=== PATIENT | female | born 1985 | race Caucasian/White ===

== ENCOUNTER 2016-10-10 11:34 | Emergency (ER) | payer MEDICAID ==
[~2016-10-10] VITALS: Wt 65.0 kg
[~2016-10-10 11:34] MED LIST: AZIT250T94 PO; IBUP800T25 PO; LORA1TAB54 PO
[2016-10-10] MEDS ORDERED: ACET325T33 PO (12:40)
--- NOTE | 2016-10-10 12:56 | ERD ---
ER Documentation Chief Complaint Date/Time DATE: 10/10/16 TIME: 12:53 Chief Complaint left ear pain for a few days. no ob complaints. 12 wks preg HPI 30-year-old female with no significant past medical history presents to the ED as a , currently states that she is and is having a generalized frontal headache with left sided ear pain. States that she has not taken Tylenol for her pain. States that her son also has similar symptoms of cough, rhinorrhea, ear pain. Denies any fever, chills, abdominal pain, nausea, vomiting, vaginal bleeding, vaginal discharge, weakness, dizziness, numbness or tingling. States that her last menses was on July 18, 2016. ROS All systems reviewed and are negative except as per history of present illness. Medications Home Meds Active Scripts Acetaminophen* (Tylenol*) 325 Mg Tablet, 1 TAB PO Q6 Y for PAIN AND OR ELEVATED TEMP, #20 TAB Prov:YUE RAMIREZ PA-C 10/10/16 Ibuprofen* (Motrin*) 800 Mg Tab, 800 MG PO Q6H Y for PAIN AND OR ELEVATED TEMP, #30 TAB Prov:TEREZA RIOS DO 12/07/15 Azithromycin* (Zithromax*) 250 Mg Tablet, 250 MG PO .ZPACK DIRECTED, #6 TAB TAKE 500 MG (2 TABS) THE FIRST DAY THEN 250 MG (1 TAB) DAYS 2-5 Prov:YOSEF RIOSSTJOSES Luis DO 12/07/15 Loratadine/Pseudoephedrine* (Claritin-D* 12 Hr) 5-120 Mg Tab.er.12h, 1 TAB PO Q12, #60 TAB.SA Prov:TEREZA RIOS DO 12/07/15 Allergies Allergies: Coded Allergies: No Known Allergies (Verified Allergy, Unknown, 12/07/15) PMhx/Soc Medical and Surgical Hx: pt denies Medical Hx, pt denies Surgical Hx Hx Alcohol Use: No Hx Substance Use: No Hx Tobacco Use: No Smoking Status: Unknown if ever smoked Physical Exam Vitals Vital Signs Date Time Temp Pulse Resp B/P Pulse Ox O2 Delivery O2 Flow Rate FiO2 10/10/16 11:41 98.6 91 20 126/77 98 Physical Exam Const: [id number], well-nourished. In no acute distress. Head: Atraumatic, normocephalic Eyes: Normal Conjunctiva without injection. No purulent discharge. PERRL. EOMI ENT: Normal external ear. Bilateral ear canal without erythema. Bilateral tympanic membrane pearly ibarra without effusion or bulging. No tenderness to palpation of bilateral tragus and mastoid. Nasal canal clear with normal turbinates. Moist oropharynx without tonsillar exudates. Non-erythematous pharynx. Uvula midline. No drooling. No trismus. Neck: Full range of motion. No meningismus. No cervical lymphadenopathy. Resp: Clear to auscultation bilaterally. No wheezing, rhonchi, rales, or crackles. No accessory muscle use. No retractions. Cardio: Regular rate and rhythm. No murmurs, rubs or gallops. Abd: Soft, non tender, non distended. Normal bowel sounds. No palpable masses. No rebound tenderness. No guarding. Skin: No petechiae or rashes Back: No midline tenderness. No CVA tenderness. Ext: No cyanosis, or edema. Neur: Awake and alert. Psych: Normal Mood and Affect Procedures/MDM 30-year-old female with no significant past medical history presents to the ED, , with a generalized headache and left ear ache. Patient is afebrile and nontoxic-appearing patient has normal vital signs. Patient's physical exam is consistent with an earache without any signs of infection. No erythema, bulging tympanic membrane, purulent discharge noted. No tenderness to palpation of the tragus or mastoid. There is low suspicion for otitis media , otitis externa, mastoiditis. Patient's physical exam include lungs which were clear to auscultation and a normal pulse oximetry. There is a low suspicion for pneumonia, pneumothorax, pulmonary embolism, epiglottitis, viral/ strep pharyngitis, sinusitis, peritonsillar abscess, mastoiditis, retropharyngeal abscess, meningitis, sepsis, acute abdomen or other emergent conditions. Discharge medications: Tylenol Patient was instructed to return to the ED for any new or worsening symptoms. They should otherwise follow up with the primary care provider within 1-2 days. The patient's questions were answered at the time of discharge. Patient understood and agreed with discharge management. Departure Diagnosis: Primary Impression: Left ear pain Additional Impression: Headache Headache type: unspecified Headache chronicity pattern: unspecified pattern Intractability: not intractable Qualified Code: R51 - Nonintractable headache, unspecified chronicity pattern, unspecified headache type Condition: Stable Patient Instructions: Earache W/O Infection (Adult), Headache, Unspecified Referrals: [facility] YOU HAVE RECEIVED A MEDICAL SCREENING EXAM AND THE RESULTS INDICATE THAT YOU DO NOT HAVE A CONDITION THAT REQUIRES URGENT TREATMENT IN THE EMERGENCY DEPARTMENT. FURTHER EVALUATION AND TREATMENT OF YOUR CONDITION CAN WAIT UNTIL YOU ARE SEEN IN YOUR DOCTORS OFFICE WITHIN THE NEXT 1-2 DAYS. IT IS YOUR RESPONSIBILITY TO MAKE AN APPOINTMENT FOR FOLOW-UP CARE. IF YOU HAVE A PRIMARY DOCTOR --you should call your primary doctor and schedule an appointment IF YOU DO NOT HAVE A PRIMARY DOCTOR YOU CAN CALL OUR PHYSICIAN REFERRAL HOTLINE AT IF YOU CAN NOT AFFORD TO SEE A PHYSICIAN YOU CAN CHOSE FROM THE FOLLOWING [facility] [address] [facility] [place]. [facility] [address] [facility] [facility] [address] [facility] [place] [address] [facility] [facility] [address] [facility]. [facility]. [address] [facility]. [facility] YOU HAVE RECEIVED A MEDICAL SCREENING EXAM AND THE RESULTS INDICATE THAT YOU DO NOT HAVE A CONDITION THAT REQUIRES URGENT TREATMENT IN THE EMERGENCY DEPARTMENT. FURTHER EVALUATION AND TREATMENT OF YOUR CONDITION CAN WAIT UNTIL YOU ARE SEEN IN YOUR DOCTORS OFFICE WITHIN THE NEXT 1-2 DAYS. IT IS YOUR RESPONSIBILITY TO MAKE AN APPOINTMENT FOR FOLOW-UP CARE. IF YOU HAVE A PRIMARY DOCTOR --you should call your primary doctor and schedule and appointment IF YOU DO NOT HAVE A PRIMARY DOCTOR YOU CAN CALL OUR PHYSICIAN REFERRAL HOTLINE AT . IF YOU CAN NOT AFFORD TO SEE A PHYSICIAN YOU CAN CHOSE FROM THE FOLLOWING [facility] INSTITUTIONS[facility] [address] [place] [address] [facility] [address] [place] [address] [facility] [address] [place] [address] [facility] Additional Instructions: Visite a tavera tee bueno para un EXAMEN.Regrese a estas instalaciones si no se mejora howard esperbamos o howard le dijimos. YUE RAMIREZ PA-C Oct 10, 2016 12:56
== END 2016-10-10 13:00 | disposition home or self-care (01) ==
LOC: FTE 11:34
DX: O99.89 Other specified diseases and conditions complicating pregnancy, childbirth and the puerperium (principal); H92.02 Otalgia, left ear; R51 Headache; Z3A.12 12 weeks gestation of pregnancy
CPT/HCPCS: 99283

== ENCOUNTER 2017-01-09 10:39 | Emergency (ER) | payer MEDICAID ==
[~2017-01-09] VITALS: Wt 80.0 kg
[~2017-01-09 10:39] MED LIST changes: +ACET325T33 PO
[2017-01-09] MEDS ORDERED: ACET325T33 PO (11:56)
--- NOTE | 2017-01-09 14:02 | ERD ---
ER Documentation Chief Complaint Date/Time DATE: 01/09/17 TIME: 13:59 Chief Complaint HEADACHE X 2 DAYS HPI 31-year-old woman complains of left-sided headache 2 days, she has a long history of similar headaches and states she was diagnosed previously with migraines. She does not recall the name of her anti-migrainous therapy and states she used acetaminophen and ibuprofen today without relief. She is over 20 weeks by dates and previously confirmed normal ultrasound and did see her seo manager earlier in the week who told her to avoid medications. She states her seo manager also told her it is part of normal second trimester symptoms. She states she has had CAT scans in the past which were unremarkable. She has had no weakness in her arms or legs, no neck pain or stiffness, no fevers or chills, no chest pain or shortness of breath. Patient denies vaginal bleeding or discharge, no dysuria or increased urinary frequency ROS All systems reviewed and are negative except as per history of present illness. Medications Home Meds Active Scripts Acetaminophen* (Tylenol*) 325 Mg Tablet, 2 TAB PO Q8 Y for PAIN, #30 TAB Prov:CANDELARIO ZHENG MD 01/09/17 Acetaminophen* (Tylenol*) 325 Mg Tablet, 1 TAB PO Q6 Y for PAIN AND OR ELEVATED TEMP, #20 TAB Prov:YUE RAMIREZ PA-C 10/10/16 Ibuprofen* (Motrin*) 800 Mg Tab, 800 MG PO Q6H Y for PAIN AND OR ELEVATED TEMP, #30 TAB Prov:YOSEF RIOSSTOLOS A. DO 12/07/15 Azithromycin* (Zithromax*) 250 Mg Tablet, 250 MG PO .GERHARD DIRECTED, #6 TAB TAKE 500 MG (2 TABS) THE FIRST DAY THEN 250 MG (1 TAB) DAYS 2-5 Prov:LEKKOS,YOSEFSTOLOS A. DO 12/07/15 Loratadine/Pseudoephedrine* (Claritin-D* 12 Hr) 5-120 Mg Tab.er.12h, 1 TAB PO Q12, #60 TAB.SA Prov:LEANAOS,YOSEFSTOLOS A. DO 12/07/15 Allergies Allergies: Coded Allergies: No Known Allergies (Verified Allergy, Unknown, 12/07/15) PMhx/Soc Migraines History of Surgery: No Anesthesia Reaction: No Hx Neurological Disorder: No Hx Respiratory Disorders: No Hx Cardiac Disorders: No Hx Psychiatric Problems: No Hx Miscellaneous Medical Probl: No Hx Alcohol Use: No Hx Substance Use: No Hx Tobacco Use: No Smoking Status: Never smoker FmHx Family History: diabetes Physical Exam Vitals Vital Signs Date Time Temp Pulse Resp B/P Pulse Ox O2 Delivery O2 Flow Rate FiO2 01/09/17 10:50 98.0 110 18 141/71 99 Physical Exam GENERAL: Well-developed, well-nourished, well-hydrated, in no apparent distress , looks nontoxic in appearance HEENT: Moist mucous membranes, pink conjunctiva, no cervical spine tenderness or step-off deformities, no goiter, no jaundice or icterus, extraocular movements intact without pain. No submandibular induration, and no pharyngeal erythema NEURO: Alert and oriented 3, cranial nerves II through XII intact bilaterally, pupils equal round reactive to light, no focal deficits or facial asymmetry, sensation intact distally Strength 5/5 in upper and lower extremities bilaterally CARDIAC: Regular rate and rhythm, no murmurs rubs or gallops LUNGS: Clear bilaterally no wheezing crackles or stridor ABDOMEN: Soft nontender, no guarding, no rigidity, no rebound, no psoas sign no obturator sign. Normoactive bowel sounds SKIN: Warm and dry to touch, no abrasions, contusions, or hematomas, no lacerations, no ecchymosis, no target lesions, and without ulcers EXTREMITIES: No clubbing cyanosis or edema, calves are bilaterally symmetrical, no Homans sign, no popliteal cord sign. Distal pulses equal and bilateral PSYCH: Normal affect without agitation or irritability Procedures/MDM She recently used ibuprofen and acetaminophen so I will defer further analgesics here in the emergency department, and referred her back to her seo manager to help manage her pain symptoms during . She may be a better candidate for medication use after she delivers. Differential diagnoses considered, included but not limited to acute coronary syndrome, pulmonary embolism, aortic dissection, abdominal aortic aneurysm, sepsis, stroke, meningitis, encephalitis, pneumonia, appendicitis, cholecystitis , bowel obstruction, pyelonephritis, nephrolithiasis, cystitis, as well as metabolic, hematologic, and electrolyte abnormalities. As well as abscess, cellulitis, fractures, and dislocations. Patient feels much better at this time, and vital signs are normal, symptoms have improved. I did give strict instructions to return to the ED if symptoms continue or worsen, patient will otherwise follow-up with primary care physician. Patient understood instructions and agreed to plan. Departure Diagnosis: Primary Impression: Migraine Migraine type: without aura Status migrainosus presence: without status migrainosus Intractability: not intractable Qualified Code: G43.009 - Migraine without aura and without status migrainosus, not intractable Additional Impression: Second trimester Condition: Good Patient Instructions: Headache, Migraine (Classical) CANDELARIO ZHENG MD Jan 09, 2017 14:02
== END 2017-01-09 12:07 | disposition home or self-care (01) ==
LOC: FTE 10:39
DX: O99.352 Diseases of the nervous system complicating pregnancy, second trimester (principal); G43.009 Migraine without aura, not intractable, without status migrainosus; Z3A.20 20 weeks gestation of pregnancy
CPT/HCPCS: 99283

== ENCOUNTER 2017-03-15 01:43 | Outpatient (CLI) | payer MEDICAID ==
[~2017-03-15] VITALS: Ht 162.6 cm; Wt 83.0 kg
[2017-03-15 01:52] VITALS: Ht 162.6 cm; Wt 83.0 kg
[2017-03-15 01:53] VITALS: BP 129/85; PULSE 89; RESP 18
--- NOTE | 2017-03-15 04:35 | RADRPT ---
PROCEDURE: ULTRASOUND BIOPHYSICAL PROFILE CLINICAL INDICATION: 31-year-old female in labor for viability. TECHNIQUE: Multiple sonographic images were obtained in order to perform a biophysical profile The images were reviewed on a PACS workstation. COMPARISON: None. FINDINGS: There is a single viable intrauterine gestation. There is a vertex presentation. Cardiac activity i s present at 122 beats per minute. The placenta is anterior. The results of the biophysical profile are as follows: breathing movement = 2/2 Gross body movement = 2/2 tone = 2/2 Qualitative amniotic fluid volume = 2/2 Amniotic fluid index equals 19.4 cm. This yields a biophysical profile score of 8/8. IMPRESSION: Biophysical profile score is 8/8. .Jovi Duenas MD, Date Time Electronically viewed and signed by .Jovi Duenas MD, MD on 03/15/2017 04:35 .M/
--- NOTE | 2017-03-15 04:38 | RADRPT ---
PROCEDURE: ULTRASOUND OBSTETRICAL CLINICAL INDICATION: 31-year-old female in labor for size and date determination. TECHNIQUE: Multiple sonographic images of the pelvis were obtained. The images were reviewed on a PACS workstation. COMPARISON: Ultrasound biophysical profile obtained concurrently. FINDINGS: The cervix is not well visualized. There is a single viable intrauterine gestation. Cardiac activit y is present with 131 beats per minute. There is a vertex presentation. Measurements were made in or caridad to determine age. The results are as follows: BPD = 8.89 cm, HC = 31.90 cm, AC = 31.99 cm, FL = 6.73 cm. This yields and estimated gestational ag e of approximately 35 weeks 4 days. The estimated date of delivery is April 15, 2017. The EFW = 272 3 +/- 409 g (6 lb 0 oz). The GP is 87%. The placenta is fundal. There is no evidence for an abruption or placenta previa. IMPRESSION: 1. Single viable intrauterine gestation of approximately 85 weeks 4 days with vertex presentation. The estimated date of delivery is April 15, 2017. 2. The estimated weight is 2723 +/- 409 g (6 lb 0 oz). The GP is 87%. .Jovi Duenas MD, Date Time Electronically viewed and signed by .Jovi Duenas MD, MD on 03/15/2017 04:37 .Alexa/
[2017-03-15] MEDS ORDERED: TERBUTALINE 1 MG/ML INJ SC PRN (06:25)
--- NOTE | 2017-03-15 12:13 | TRIAGE ---
OB Triage Datetime Report Generated by CPN: 03/15/2017 12:12 Datetime: 03/15/2017 11:16 Labor Evaluation Frequency: x2 Monitor Mode: External Duration (sec)2399: 40 Quality: Mild Pattern: Normal: <= 5 Contractions in 10 Minutes Resting Tone [place]: Relaxed Heart Rate FHR Baseline Rate: 125 FHR Baseline Changes: No Baseline Change Variability: Moderate 6-25 bpm Accelerations: 15X15 Decelerations: Variable Datetime: 03/15/2017 11:00 Labor Evaluation Frequency: 4-12 Monitor Mode: External Duration (sec)2399: 50-60 Quality: Mild Pattern: Normal: <= 5 Contractions in 10 Minutes Resting Tone [place]: Relaxed Heart Rate FHR Baseline Rate: 130 Monitor Mode: External US FHR Baseline Changes: No Baseline Change Variability: Moderate 6-25 bpm Accelerations: 15X15 Decelerations: Variable Comments: OCC VARIABLES Datetime: 03/15/2017 10:02 Labor Evaluation Frequency: 3-12 Monitor Mode: External Duration (sec)2399: 50-70 Quality: Mild Pattern: Normal: <= 5 Contractions in 10 Minutes Resting Tone [place]: Relaxed Contraction Comments: PT REPORTS NOT FEELING CTX Heart Rate FHR Baseline Rate: 125 FHR Baseline Changes: No Baseline Change Variability: Moderate 6-25 bpm Accelerations: 15X15 Decelerations: Variable Datetime: 03/15/2017 09:01 Labor Evaluation Frequency: 3-11 Monitor Mode: External Duration (sec)2399: 40-60 Quality: Mild Pattern: Normal: <= 5 Contractions in 10 Minutes Resting Tone [place]: Relaxed Contraction Comments: PT REPORTS NOT FEELING CTX Heart Rate FHR Baseline Rate: 130 FHR Baseline Changes: No Baseline Change Variability: Moderate 6-25 bpm Accelerations: 15X15 Decelerations: None Category: Category I Datetime: 03/15/2017 08:42 Vaginal Exam Dilatation (cms): 0.0 Effacement (%): 0 Station: -3 Exam By: CK Vaginal Bleeding: None Cervix, Consistency: Firm Cervix, Position: Posterior Datetime: 03/15/2017 08:01 Labor Evaluation Frequency: 4-10 Monitor Mode: External Duration (sec)2399: 40-70 Quality: Mild Pattern: Normal: <= 5 Contractions in 10 Minutes Resting Tone [place]: Relaxed Contraction Comments: PT REPORTS NOT FEELING CTX Heart Rate FHR Baseline Rate: 120 Monitor Mode: External US FHR Baseline Changes: No Baseline Change Variability: Moderate 6-25 bpm Accelerations: 15X15 Decelerations: None Category: Category I Datetime: 03/15/2017 07:52 Pain Assessment Pain Scale: 9 Pain Presence: Intermittent Pain Location: Right Leg Pain Assessment Comments: PAIN WHEN WALKING ONLY; UPPER THIGH Datetime: 03/15/2017 06:21 Stage of : OB Triage Datetime: 03/15/2017 06:08 Stage of : OB Triage Labor Evaluation Frequency: 2-4 Monitor Mode: External Duration (sec)2399: 40-50 Quality: Mild Resting Tone [place]aceo: Relaxed Heart Rate FHR Baseline Rate: 125 Monitor Mode: External US Variability: Moderate 6-25 bpm Accelerations: 15X15 Decelerations: None Category: Category I Datetime: 03/15/2017 05:14 Stage of : OB Triage Datetime: 03/15/2017 05:10 Stage of : OB Triage Labor Evaluation Frequency: x4 Monitor Mode: External Quality: Mild Resting Tone [place]aceo: Relaxed Heart Rate FHR Baseline Rate: 115 Monitor Mode: External US Variability: Moderate 6-25 bpm Accelerations: 15X15 Decelerations: None Category: Category I Datetime: 03/15/2017 04:15 Vaginal Exam Dilatation (cms): 0.0 Effacement (%): 0 Station: -3 Exam By: M BUENROSTRO Vaginal Bleeding: None Cervix, Consistency: Firm Cervix, Position: Posterior Presentation 'A': Unable to Assess Datetime: 03/15/2017 04:00 Stage of : OB Triage Labor Evaluation Frequency: 0 Monitor Mode: External Resting Tone [place]aceo: Relaxed Heart Rate FHR Baseline Rate: 130 Variability: Minimal - Undetectable to <=5 bpm Accelerations: 15X15 Decelerations: None Category: Category I Datetime: 03/15/2017 03:22 Membrane Status: Intact Datetime: 03/15/2017 02:57 Labor Evaluation Frequency: x2 Monitor Mode: External Duration (sec)2399: 40-60 Resting Tone Maceo: Relaxed Heart Rate FHR Baseline Rate: 115 Monitor Mode: External US Variability: Moderate 6-25 bpm Accelerations: 15X15 Decelerations: None Category: Category I Datetime: 03/15/2017 01:49 Stage of : OB Triage Assessment Type: Triage Maternal Assessment Level of Consciousness: Fully Conscious DTR's/Clonus: DTRs 2+; No Clonus Headache: Denies Blurred Vision: No Respiratory Effort: Unlabored; Regular Rhythm; Equal Expansion Breath Sounds, Left: Clear and Equal Breath Sounds, Right: Clear and Equal Nausea/Vomiting: Denies RUQ Epigastric Pain: Denies Facial Edema: None Temperature Route: Axillary Fall Risk Assessment History of Falling: (0) No Secondary Diagnosis: (0) No Ambulatory Aid: (0) Bedrest/Nurse Assist IV Therapy: (0) No Gait: (0) Normal/Bedrest/Immobile Mental Status: (0) Oriented to Own Ability Fall Score: 0 Fall Risk Score Definition: No Risk: No action required Datetime: 03/15/2017 01:48 Time of Arrival: 03/15/2017 01:35 EGA: 34.0 Arrived By: Ambulatory Arrived From: Home Chief Complaint: lower abdominal pain, cramping. denies leaking or bleeding Movement: Present Contractions: Irregular Rupture of Membranes: Denies Vaginal Bleeding: None Vaginal Discharge: Denies Recent Sexual Intercouse: Denies Abdominal Trauma: Not Applicable Patient Complaints: Contractions; Cramping Initial Plan: VS, EFM, PO HYDRATION, BPP, EFW, VE Datetime: 03/15/2017 01:45 Stage of : OB Triage Monitor Mode: External Monitor Mode: External US
--- NOTE | 2017-03-15 17:22 | QN ---
Documentation Comment iup 34 weeks Ucx leg pain vss exam wnl 2/2 dtr 5/5 strenght us wnl a/p iup 34 weeks false labor dc home AUBREY ROBERSON MD Mar 15, 2017 17:22
== END 2017-03-15 11:40 | disposition home or self-care (01) ==
LOC: OBT 01:43 → L-D 01:44 → OBT 11:40
PROVIDERS: ATTEND Obstetrics & Gynecology
DX: O47.03 False labor before 37 completed weeks of gestation, third trimester (principal); Z3A.34 34 weeks gestation of pregnancy
CPT/HCPCS: 76815; 76818; 96372; J3105; Z7500; G0463

== ENCOUNTER 2017-04-08 17:33 | Outpatient (CLI) | payer MEDICAID ==
[~2017-04-08] VITALS: Ht 152.4 cm; Wt 84.2 kg
--- NOTE | 2017-04-08 18:00 | RADRPT ---
PROCEDURE: US OB biophysical profile. CLINICAL INDICATION: evaluation TECHNIQUE: Multiple sonographic images of the pelvis were obtained. The images were reviewed on a PACS workstation. COMPARISON: No prior studies are available for comparison. FINDINGS: There is a single viable intrauterine gestation. Cardiac activity is present with 132 beats per min nasir. There is a vertex presentation. The placenta is left lateral in location. There is no evidence of placental abruption. There is a normal amount of amniotic fluid with an RUEL = 16.3 cm. Biophysical profile: movement 2/2 tone 2/2. breathing 2/2 RUEL 2/2 Total 04/28 RPTAT: AA . IMPRESSION: Normal biophysical profile. Physician Ruiz Date Time Electronically viewed and signed by Physician Ruiz on 04/08/2017 18:00 /
[2017-04-08 18:59] VITALS: Ht 152.4 cm; Wt 84.2 kg
[2017-04-08 19:00] VITALS: BP 118/75; PULSE 84; RESP 20
[2017-04-08] MEDS ORDERED: PRENAT PO (19:05)
[2017-04-08] MEDS ORDERED: CALC600T11 PO (19:06)
[2017-04-08 19:44] LABS: ADD UMIC NO; UR ASCORBIC ACID NEGATIVE (NEGATIVE); UR BILIRUBIN (Dip) NEGATIVE (NEGATIVE); UR BLOOD (Dip) NEGATIVE (NEGATIVE); UR CLARITY CLEAR (CLEAR); UR COLOR YELLOW (YELLOW); UR GLUCOSE (Dip) NEGATIVE (NEGATIVE); UR KETONES (Dip) 1+ mg/dL (NEGATIVE); UR LEUKOCYTE ESTERASE (Dip) NEGATIVE Leu/ul (NEGATIVE); UR NITRITE (Dip) NEGATIVE (NEGATIVE); UR SPECIFIC GRAVITY (Dip) 1.012 (1.003-1.030); UR TOTAL PROTEIN (Dip) NEGATIVE (NEGATIVE); UR UROBILINOGEN (Dip) NEGATIVE (NEGATIVE)
--- NOTE | 2017-04-08 20:03 | PN ---
Triage Information Date/Time 04/08/2017 Weeks of Gestation 37.9 : 4 Para: 3 Diabetes: none Hypertention: none Additional information sent in from clinic for NST and BPP because of audible decelerations Objective Vital Signs Date Time Temp Pulse Resp B/P Pulse Ox O2 Delivery O2 Flow Rate FiO2 04/08/17 19:00 98.1 84 20 118/75 Room Air Heart Rate: 140's Heart Rate Comments reactive Contractions: 6-10 Minutes Apart Results/Medications Results 24 hrs Laboratory Tests Test 04/08/17 18:43 Urine Color YELLOW Urine Clarity CLEAR Urine pH 6.0 Urine Specific [place] 1.012 Urine Ketones 1+ H Urine Nitrite NEGATIVE Urine Bilirubin NEGATIVE Urine Urobilinogen NEGATIVE Urine Leukocyte Esterase NEGATIVE Urine Hemoglobin NEGATIVE Urine Glucose NEGATIVE Urine Total Protein NEGATIVE Imaging Results BPP 04/28 Assessment/Plan Audible decelerations R NST and BPP eill follow as outpatient KWADWO ALVAREZ MD Apr 08, 2017 20:03
--- NOTE | 2017-04-09 00:25 | TRIAGE ---
OB Triage Datetime Report Generated by CPN: 04/09/2017 00:24 Datetime: 04/08/2017 18:54 Labor Evaluation Frequency: IRREG Monitor Mode: External Duration (sec)2399: 50-90 Quality: Mild Pattern: Normal: <= 5 Contractions in 10 Minutes Resting Tone [place]: Relaxed Heart Rate FHR Baseline Rate: 125 Monitor Mode: External US Variability: Moderate 6-25 bpm Accelerations: 15X15 Decelerations: None Category: Category I Comments: NST REACTIVE FOR GESTATIONAL AGE Datetime: 04/08/2017 18:53 Stage of : OB Triage Assessment Type: Triage Maternal Assessment Level of Consciousness: Fully Conscious DTR's/Clonus: DTRs 2+; No Clonus Headache: Denies Blurred Vision: No Respiratory Effort: Unlabored; Regular Rhythm; Equal Expansion Breath Sounds, Left: Clear and Equal Breath Sounds, Right: Clear and Equal Nausea/Vomiting: Denies RUQ Epigastric Pain: Denies Lower Extremities Edema: None Degree: None Upper Extremities Edema: None Degree: None Facial Edema: None Temperature Route: Axillary Fall Risk Assessment History of Falling: (0) No Secondary Diagnosis: (0) No Ambulatory Aid: (0) Bedrest/Nurse Assist IV Therapy: (0) No Gait: (0) Normal/Bedrest/Immobile Mental Status: (0) Oriented to Own Ability Fall Score: 0 Fall Risk Score Definition: No Risk: No action required Datetime: 04/08/2017 18:46 Time of Arrival: 04/08/2017 17:23 EGA: 37.3 Arrived By: Ambulatory Arrived From: Dr. Ramirez Chief Complaint: AUDIBLE DECEL IN CLINIC Movement: Present Contractions: Denies/Absent Rupture of Membranes: Denies Vaginal Bleeding: None Vaginal Discharge: Denies Recent Sexual Intercouse: Denies Abdominal Trauma: Not Applicable Patient Complaints: None Time Provider Notified: 04/08/2017 17:30 Provider Notified: DR. MCCORMICK Initial Plan: BPP, EXTENDED MONITORING Datetime: 04/08/2017 18:30 Maternal Assessment Level of Consciousness: Fully Conscious DTR's/Clonus: DTRs 2+; No Clonus Headache: Denies Blurred Vision: No Respiratory Effort: Unlabored; Regular Rhythm; Equal Expansion Breath Sounds, Left: Clear and Equal Breath Sounds, Right: Clear and Equal Nausea/Vomiting: Denies RUQ Epigastric Pain: Denies Facial Edema: None Fall Risk Assessment History of Falling: (0) No Secondary Diagnosis: (0) No Ambulatory Aid: (0) Bedrest/Nurse Assist IV Therapy: (0) No Gait: (0) Normal/Bedrest/Immobile Mental Status: (0) Oriented to Own Ability Fall Score: 0 Fall Risk Score Definition: No Risk: No action required Datetime: 03/15/2017 01:49 Fall Score: 0 Fall Risk Score Definition: No Risk: No action required Datetime: 03/15/2017 01:48 EGA: 34.0
== END 2017-04-08 21:05 | disposition home or self-care (01) ==
LOC: OBT 17:33 → L-D 17:36 → OBT 21:05
PROVIDERS: ATTEND Obstetrics & Gynecology
DX: O76 Abnormality in fetal heart rate and rhythm complicating labor and delivery (principal); Z3A.37 37 weeks gestation of pregnancy
CPT/HCPCS: 76818; 81003; Z7500; G0463

== ENCOUNTER 2017-04-24 13:11 | Inpatient (IN) | payer MEDICAID ==
[~2017-04-24] VITALS: Ht 152.4 cm; Wt 83.7 kg
[~2017-04-24 13:11] MED LIST changes: -ACET325T33 PO; -AZIT250T94 PO; +CALC600T11 PO; -IBUP800T25 PO; -LORA1TAB54 PO; +PRENAT PO
[2017-04-24 13:26] VITALS: BP 126/77; PULSE 117; RESP 16; Ht 152.4 cm; Wt 83.7 kg
--- NOTE | 2017-04-24 14:07 | TRIAGE ---
OB Triage Datetime Report Generated by CPN: 04/24/2017 14:07 Datetime: 04/24/2017 13:59 Labor Evaluation Frequency: 4-7 Monitor Mode: External Duration (sec)2399: 60-160 Quality: Moderate Pattern: Normal: <= 5 Contractions in 10 Minutes Resting Tone Aristes: Relaxed Heart Rate FHR Baseline Rate: 145 Monitor Mode: External US Variability: Moderate 6-25 bpm Accelerations: 15X15 Decelerations: None Category: Category I Pain Assessment Pain Scale: 6 Pain Presence: Intermittent Pain Type: Contraction Pain Location: Abdomen Pain Goal: 3 Datetime: 04/24/2017 13:55 Assessment Type: Triage Maternal Assessment Level of Consciousness: Fully Conscious DTR's/Clonus: DTRs 2+; No Clonus Headache: Denies Blurred Vision: No Respiratory Effort: Unlabored; Regular Rhythm; Equal Expansion Breath Sounds, Left: Clear and Equal Breath Sounds, Right: Clear and Equal Nausea/Vomiting: Denies RUQ Epigastric Pain: Denies Lower Extremities Edema: None Degree: None Upper Extremities Edema: None Degree: None Facial Edema: None Fall Risk Assessment History of Falling: (0) No Secondary Diagnosis: (0) No Ambulatory Aid: (0) Bedrest/Nurse Assist IV Therapy: (0) No Gait: (0) Normal/Bedrest/Immobile Mental Status: (0) Oriented to Own Ability Fall Score: 0 Fall Risk Score Definition: No Risk: No action required Datetime: 04/24/2017 13:28 Vaginal Exam Dilatation (cms): 2.5 Effacement (%): 70 Station: -3 Exam By: wliu Datetime: 04/24/2017 13:20 Time of Arrival: 04/24/2017 13:00 EGA: 39.5 Arrived By: Ambulatory Arrived From: Home Chief Complaint: Pt. came to hospital c/o uc for 3days, pain level 6/10, deny srom, small amount b loody show Movement: Present Contractions: Regular Rupture of Membranes: Denies Vaginal Bleeding: Normal Show Vaginal Discharge: Denies Recent Sexual Intercouse: Denies Abdominal Trauma: Not Applicable Patient Complaints: Contractions Time Provider Notified: 04/24/2017 13:41 Provider Notified: Initial Plan: r/o labor Datetime: 04/08/2017 20:47 Stage of : OB Triage Labor Evaluation Frequency: 3-8 Monitor Mode: External Quality: Mild Pattern: Normal: <= 5 Contractions in 10 Minutes Resting Tone Aristes: Relaxed Monitor Mode: External US FHR Baseline Changes: No Baseline Change Variability: Moderate 6-25 bpm Accelerations: 15X15 Decelerations: None Category: Category I Pain Assessment Pain Scale: 0 Pain Presence: None/Denies Pain Type: N/A Vaginal Exam Dilatation (cms): 1.0 Effacement (%): 60 Station: -3 Exam By: Boaz Jones Membrane Status: Intact Vaginal Bleeding: None Cervix, Consistency: Moderate Cervix, Position: Posterior Presentation 'A': Cephalic Datetime: 04/08/2017 20:06 Stage of : OB Triage Monitor Mode: External Quality: Mild Pattern: Normal: <= 5 Contractions in 10 Minutes Resting Tone Aristes: Relaxed Heart Rate FHR Baseline Rate: 120 Monitor Mode: External US FHR Baseline Changes: No Baseline Change Variability: Moderate 6-25 bpm Accelerations: 15X15 Decelerations: None Category: Category I Datetime: 04/08/2017 19:24 Stage of : OB Triage Labor Evaluation Frequency: 3-5 Monitor Mode: External Quality: Mild Pattern: Normal: <= 5 Contractions in 10 Minutes Resting Tone Aristes: Relaxed Contraction Comments: Pt denies feeling ucs Heart Rate FHR Baseline Rate: 120 Monitor Mode: External US FHR Baseline Changes: No Baseline Change Variability: Moderate 6-25 bpm Accelerations: 15X15 Decelerations: None Category: Category I Pain Assessment Pain Scale: 0 Pain Presence: None/Denies Pain Type: N/A Datetime: 04/08/2017 18:53 Fall Score: 0 Fall Risk Score Definition: No Risk: No action required Datetime: 04/08/2017 18:46 EGA: 37.3 Datetime: 04/08/2017 18:30 Fall Score: 0 Fall Risk Score Definition: No Risk: No action required Datetime: 03/15/2017 01:49 Fall Score: 0 Fall Risk Score Definition: No Risk: No action required Datetime: 03/15/2017 01:48 EGA: 34.0
[2017-04-24] MEDS ORDERED: LACTATED RINGER'S 1,000 ML IV SCH (14:44)
[2017-04-24] MEDS ORDERED: METHYLERGONOVINE 0.2 MG INJ IM PRN (15:00)
[2017-04-24] MEDS ORDERED: CARBOPROST 250 MCG INJ IM PRN (15:00)
[2017-04-24] MEDS ORDERED: OXYTOCIN 30 UNITS/LR 500 ML IV PRN (15:00)
[2017-04-24] MEDS ORDERED: MINERAL OIL LIGHT 10 ML VIAL TOP PRN (15:00)
[2017-04-24] MEDS ORDERED: OXYTOCIN 30 UNITS/LR 500 ML IV SCH ×2 (15:00→18:30)
[2017-04-24] MEDS ORDERED: ACETAMINOPHEN/CODEINE #3 TAB PO PRN (15:00)
[2017-04-24] MEDS ORDERED: LACTATED RINGER'S 1,000 ML IV PRN (15:00)
[2017-04-24] MEDS ORDERED: BUTORPHANOL 2 MG INJ IV PRN (15:00)
[2017-04-24] MEDS ORDERED: MISOPROSTOL 200 MCG TAB PR PRN (15:00)
[2017-04-24] MEDS ORDERED: IBUPROFEN 600 MG TAB PO PRN (15:00)
[2017-04-24] MEDS ORDERED: LIDOCAINE 1% (MPF) 30 ML INJ INJ PRN (15:00)
[2017-04-24 15:10] LABS: BASOPHILS % 0.3 % (0.0-2.0); EOSINOPHILS % 0.5 % (0.0-7.0); HEMATOCRIT 35.7 % (37.0-47.0); HEMOGLOBIN 12.4 g/dl (12.0-16.0); LYMPHOCYTES # 1.4 10^3/ul (0.8-2.9); LYMPHOCYTES % 20.8 % (15.0-51.0); MEAN CORPUSCULAR HEMOGLOBIN 27.8 pg (29.0-33.0); MEAN CORPUSCULAR HGB CONC 34.7 g/dl (32.0-37.0); MEAN PLATELET VOLUME 10.4 fl (7.4-10.4); MONOCYTE # 0.6 10^3/ul (0.3-0.9); MONOCYTES % 8.6 % (0.0-11.0); NEUTROPHIL # 4.6 10^3/ul (1.6-7.5); NEUTROPHILS % 69.3 % (39.0-77.0); PLATELET COUNT 190 10^3/UL (140-415); RED BLOOD COUNT 4.46 10^6/ul (4.20-5.40); WHITE BLOOD COUNT 6.6 10^3/ul (4.8-10.8)
[2017-04-24 15:27] LABS: INR 0.93; PROTIME 12.5 Sec (12.2-14.2)
[2017-04-24 15:28] LABS: PARTIAL THROMBOPLASTIN TIME 25.6 Sec (25.0-35.0)
--- NOTE | 2017-04-24 18:29 | HP ---
Date/Time of Note Date/Time of Note DATE: 04/24/17 TIME: 18:25 OB - History Hx of Present Free Text/Dictation Complaint of onset of uterine contractions started a.m. of admission Chief Complaint: Uterine contractions every 5 minutes Last Menstrual Period: Jul 18, 2016 Estimated Due Date: Apr 24, 2017 : 4 Para: 3 Care: Good Care Ultrasounds: Normal mid trimester US Obstetrical Complications: None, Other (Possible abnormal glucose screen during ) Medical Complications: None Past Family/Social History * Past Medical, Surgical, Family and Obstetric Histories reviewed from chart. Blood Type: O+ Rubella: immune RPR/VDRL: Negative GBS Status: Negative HBsAG: Negative OB Admission Exam Vital Signs Vital Signs Vital Signs Date Time Temp Pulse Resp B/P Pulse Ox O2 Delivery O2 Flow Rate FiO2 04/24/17 13:26 98.0 117 16 126/77 Physical Exam HEENT: WNL Heart: Rhythm Normal Lungs: Clear, Equal Abdomen: WNL Extremities: Normal Reflexes: Normal Cervical Dilatation: 4cm Effacement: 75% Station: -3 Membranes: Intact Heart Rate: 140's Accelerations: Accelerations Present Decelerations: No Decelerations Varibility: Moderate Contractions on Admission: 6-10 Minutes Apart Date/Time Contractions Began: 04/24/2017 Frequency of Contractions: Q5 Duration: >60 SECONDS Intensity: Mild Last 72 hours Lab Results CBC & BMP 04/24/17 14:47 OB Assessment/Plan Reason for admission: active labor Other Assessment: Term gestation Possible macrosomia Other plan: We will obtain EFW Started on Pitocin augmentation KWADWO ALVAREZ MD Apr 24, 2017 18:28
--- NOTE | 2017-04-24 19:16 | RADRPT ---
PROCEDURE: US OB. CLINICAL INDICATION: Contractions. Macrosomia. TECHNIQUE: Multiple sonographic images of the pelvis were obtained. Transabdominal imaging only wa s performed. The images were reviewed on a PACS workstation. COMPARISON: None available. FINDINGS: There is a single viable intrauterine gestation. Cardiac activity is present with a heart rate of 1 33 bpm. There is a cephalic presentation. Measurements were made in order to determine age. The results are as follows: BPD = 9.65 cm HC = 534.21 cm AC = 35.31 cm FL = 7.7 cm Estimated gestational age of approximately 39 weeks 3 days. The estimated date of delivery is 04/28/2017. The EFW = 37 48 g, at the 69.9 percentile. The placenta is posterior, grade 2. There is no evidence for an abruption or placenta previa. IMPRESSION: 1. Single viable intrauterine gestation of approximately 39 weeks 3 days. 2. The estimated date of delivery is 04/28/2017. RPTAT: HLBP .Kaiden Vazquez MD, Date Time Electronically viewed and signed by .Kaiden Vazquez MD, MD on 04/24/2017 19:16 .P/
[2017-04-24] MEDS: OXYTOCIN 30 UNITS/LR 500 ML IV SCH ×2 (21:40→23:54)
--- NOTE | 2017-04-24 21:53 | LDN ---
Date/Time of Note Date/Time of Note DATE: 04/24/17 TIME: 21:51 Delivery Summary Normal spontaneous vaginal delivery of a viable infant over intact perineum Weeks of Gestation 40 Placenta Delivered: Spontaneously, Intact & Complete Meconium: none Episiotomy: No Perineal laceration: 2 Laceration repair: Second-degree perineal laceration was repaired in layers with 2-0 Vicryl and 2-0 chromic Anesthesia type: Local Estimated blood loss: 300 Sponge & Needle done & correct: Yes All needle counts correct: Yes Any foreign bodies felt in the: No Problems: Infant Delivery Information Sex Infant Sex: male Apgars 1 Minute: 9 5 Minute: 9 Suctioning Nose & mouth suctioned at lico: Yes Delee suction performed: No Umbilical Cord Umbilical cord with: 3 Vessels Cord presentations: nuchal cord Nuchal cord present X: 1 Cord Blood was obtained: Yes Mother & Baby Disposition Disposition Mom & Baby to Maternity; Good: Yes (Mother and baby were recovered in good condition) Mom transferred to: Other (Maternity) Baby to NICU: No KWADWO ALVAREZ MD Apr 24, 2017 21:53
[2017-04-24] MEDS: LACTATED RINGER'S 1,000 ML IV* SCH (23:56)
[2017-04-25] MEDS ORDERED: LANOLIN 7 GM TUBE TOP PRN
[2017-04-25] MEDS ORDERED: OXYTOCIN 30 UNITS/LR 500 ML IV PRN
[2017-04-25] MEDS ORDERED: CARBOPROST 250 MCG INJ IM PRN
[2017-04-25] MEDS ORDERED: WITCH HAZEL/GLYCERIN PAD PR PRN
[2017-04-25] MEDS ORDERED: MISOPROSTOL 200 MCG TAB PR PRN
[2017-04-25] MEDS ORDERED: METHYLERGONOVINE 0.2 MG INJ IM PRN
[2017-04-25] MEDS ORDERED: DIBUCAINE 1% 30 GM OINT PR PRN
[2017-04-25] MEDS ORDERED: ACETAMINOPHEN/CODEINE #3 TAB PO PRN
[2017-04-25] MEDS ORDERED: ZOLPIDEM 5 MG TAB PO PRN
[2017-04-25] MEDS ORDERED: BENZOCAINE 20% 56 ML SPRAY TOP PRN
[2017-04-25 00:12] VITALS: BP 133/81; PULSE 77; RESP 19
[2017-04-25 00:19] LABS: BASOPHILS % 0.1 % (0.0-2.0); EOSINOPHILS % 0.1 % (0.0-7.0); HEMOGLOBIN 12.8 g/dl (12.0-16.0); LYMPHOCYTES # 1.1 10^3/ul (0.8-2.9); LYMPHOCYTES % 7.6 % (15.0-51.0); MEAN CORPUSCULAR HEMOGLOBIN 28.1 pg (29.0-33.0); MEAN CORPUSCULAR HGB CONC 34.6 g/dl (32.0-37.0); MEAN CORPUSCULAR VOLUME 81.3 fl (82.0-101.0); MEAN PLATELET VOLUME 10.3 fl (7.4-10.4); MONOCYTE # 0.9 10^3/ul (0.3-0.9); MONOCYTES % 5.8 % (0.0-11.0); NEUTROPHIL # 12.6 10^3/ul (1.6-7.5); NEUTROPHILS % 85.9 % (39.0-77.0); PLATELET COUNT 197 10^3/UL (140-415); RED BLOOD COUNT 4.55 10^6/ul (4.20-5.40); WHITE BLOOD COUNT 14.7 10^3/ul (4.8-10.8)
[2017-04-25 01:00] LABS: ALBUMIN 3.2 g/dl (3.3-4.9); BILIRUBIN,INDIRECT 0.4 mg/dl (0-1.1); BILIRUBIN,TOTAL 0.4 mg/dl (0.2-1.3); CALCIUM 9.4 mg/dl (8.4-10.2); CREATININE 0.46 mg/dl (0.44-1.00); POTASSIUM 3.7 mmol/L (3.5-5.1); TOTAL PROTEIN 6.4 g/dl (6.1-8.1); URIC ACID 5.2 mg/dl (3.1-7.9)
[2017-04-25] MEDS: IBUPROFEN 600 MG TAB PO SCH ×5 (01:53→23:48)
[2017-04-25 02:14] LABS: INR 1.03; PROTIME 13.5 Sec (12.2-14.2); PT RATIO 1.1
[2017-04-25 02:55] LABS: ADD UMIC YES; UR ASCORBIC ACID NEGATIVE (NEGATIVE); UR BILIRUBIN (Dip) NEGATIVE (NEGATIVE); UR BLOOD (Dip) 3+ mg/dL (NEGATIVE); UR CLARITY SLIGHTLY CLOUDY (CLEAR); UR COLOR YELLOW (YELLOW); UR GLUCOSE (Dip) NEGATIVE (NEGATIVE); UR KETONES (Dip) 2+ mg/dL (NEGATIVE); UR LEUKOCYTE ESTERASE (Dip) TRACE Leu/ul (NEGATIVE); UR MUCUS FEW /HPF (NONE SEEN); UR NITRITE (Dip) NEGATIVE (NEGATIVE); UR RBC > 182 /HPF (0-5); UR SPECIFIC GRAVITY (Dip) 1.026 (1.003-1.030); UR TOTAL PROTEIN (Dip) 1+ mg/dl (NEGATIVE); UR UROBILINOGEN (Dip) NEGATIVE (NEGATIVE)
[2017-04-25 04:00] VITALS: BP 132/83; PULSE 86; RESP 19
[2017-04-25] MEDS: LACTATED RINGER'S 1,000 ML IV* SCH (07:28)
[2017-04-25 08:19] LABS: BASOPHILS % 0.1 % (0.0-2.0); EOSINOPHILS % 0.4 % (0.0-7.0); HEMATOCRIT 32.7 % (37.0-47.0); HEMOGLOBIN 11.1 g/dl (12.0-16.0); LYMPHOCYTES # 1.5 10^3/ul (0.8-2.9); MEAN CORPUSCULAR HGB CONC 33.9 g/dl (32.0-37.0); MEAN CORPUSCULAR VOLUME 82.4 fl (82.0-101.0); MEAN PLATELET VOLUME 10.7 fl (7.4-10.4); MONOCYTE # 0.8 10^3/ul (0.3-0.9); MONOCYTES % 8.5 % (0.0-11.0); NEUTROPHIL # 6.6 10^3/ul (1.6-7.5); NEUTROPHILS % 73.6 % (39.0-77.0); PLATELET COUNT 172 10^3/UL (140-415); RED BLOOD COUNT 3.97 10^6/ul (4.20-5.40); RED CELL DISTRIBUTION WIDTH 15.1 % (11.5-14.5)
[2017-04-25 08:45] VITALS: BP 122/91; PULSE 82; RESP 18
[2017-04-25] MEDS ORDERED: PRENATAL VITAMIN PO SCH (09:00)
[2017-04-25] MEDS: MAGNESIUM HYDROXIDE 30ML CUP PO SCH ×2 (09:25→21:34)
[2017-04-25] MEDS: SENNA/DOCUSATE NA (8.6MG/50MG) TAB PO SCH ×2 (11:53→21:34)
[2017-04-25 12:11] VITALS: BP 128/85; PULSE 86; RESP 18
--- NOTE | 2017-04-25 13:42 | DS ---
Date/Time of Note Date/Time of Note Home next day DATE: 04/25/17 TIME: 13:41 Obstetrical Discharge Record Final Diagnosis Final Diagnosis: Term delivered Other Final Diagnosis Status post vaginal delivery Vaginal Delivery Obstetrical Delivery: Spontaneous, Laceration, Repaired Complications Augmentation: Yes Condition on Discharge Physical Assessment Last Vitals: See nurse's note Voiding: Yes Bowel Movement: Yes Breast: Soft, non-tender, Filling Fundus: Firm Abdomen and Incision: Soft bowel sounds positive Fundus at umbilicus Episiotomy: Perineum is healing Calf Tenderness: No Patient Condition: Good KWADWO ALVAREZ MD Apr 25, 2017 13:42
[2017-04-25] MEDS ORDERED: IBUP-1542 PO (13:43)
--- NOTE | 2017-04-25 13:43 | PD.PPDC ---
[employer] Discharge Instruction Provider Information Physician Information 31-year-old female had vaginal delivery Diagnosis Final Diagnosis: Status post vaginal delivery Condition Patient Condition: Good Diet Diet: Resume Regular Diet Activity/Restrictions Activity: Normal Activity May Shower Restrictions: Nothing in the Vagina Return to Work or School: Jun 08, 2017 Follow-up Follow-up with Physician: 4, Week/Weeks (In clinic) Return to clinic for OB Instructions: Breast Tenderness Depression KWADWO ALVAREZ MD Apr 25, 2017 13:43
[2017-04-25 15:51] VITALS: BP 120/77; PULSE 86; RESP 20
[2017-04-25 20:15] VITALS: BP 126/83; PULSE 76; RESP 18
[2017-04-26] MEDS: ACETAMINOPHEN/CODEINE #3 TAB PO PRN ×2 (00:59→15:32)
--- NOTE | 2017-04-26 02:35 | NSTRPT ---
NST Information Datetime Report Generated by CPN: 04/26/2017 02:35 Datetime: 04/23/2017 09:17 NST Information EGA: 39.6 Test Number: 2 Time on Monitor: 04/23/2017 09:32 Time off Monitor: 04/23/2017 10:01 NST Duration (Min): 29 Reason for NST: Macrosomia Test and Monitor Explained: Monitor Explained; Test Explained; Verbalized Understanding Pulse: 85 Resp: 16 SBP: 129 DBP: 81 Test Evaluation NST Interventions: Reposition Patient Patient States Movement: Present Contraction Frequency: Q5-6min, mild FHR Baseline : 130 Variability: Moderate 6-25bpm Accelerations: 15X15 Decelerations: None FHR Category: Category I NST Results: Reactive Comments: PT TO U/S, RUEL 14.3.cm, cephalic. 1003-Pt home undelivered with LABOR precautions. Follo w up NST appointment given. Kick count instructions reviewed. Pt states understanding. No furh ter questions asked at this time. Electronically Signed By E-Signature: with User ID: [id number] Datetime: 04/20/2017 14:43 NST Information EGA: 39.3 NST Duration (Min): 36
[2017-04-26 05:12] VITALS: BP 134/88; PULSE 75; RESP 18
[2017-04-26] MEDS: IBUPROFEN 600 MG TAB PO SCH ×2 (06:21→11:34)
[2017-04-26 08:37] VITALS: BP 113/75; PULSE 69; RESP 18
[2017-04-26] MEDS ORDERED: VARICELLA VACCINE LIVE/PF 1,350 UNIT/0.5 ML ML SC* ONE (09:00)
[2017-04-26] MEDS ORDERED: DIPHTH/TET/ACEL PERTUSS (ADULT) 0.5 ML VIAL IM* ONE (09:00)
[2017-04-26] MEDS ORDERED: MEASLES,MUMPS,RUBELLA VACCINE INJ SC* ONE (09:00)
[2017-04-26] MEDS: MAGNESIUM HYDROXIDE 30ML CUP PO SCH (09:07)
[2017-04-26] MEDS: SENNA/DOCUSATE NA (8.6MG/50MG) TAB PO SCH (09:07)
== END 2017-04-26 18:25 | disposition home or self-care (01) | DRG 775 ==
LOC: OBT 13:11 → L-D 13:12 → OBT 14:01 → L-D 14:04 → UNDOADMIN 14:04 → UNDODISIN 21:50 → L-D 23:52 → PP1 23:54
PROVIDERS: ADMIT Obstetrics & Gynecology; ATTEND Obstetrics & Gynecology
PROC: 10E0XZZ Delivery of Products of Conception, External Approach (ICD-10-PCS; principal; 2017-04-24)
PROC: 0KQM0ZZ Repair Perineum Muscle, Open Approach (ICD-10-PCS; 2017-04-24)
PROC: 3E033VJ Introduction of Other Hormone into Peripheral Vein, Percutaneous Approach (ICD-10-PCS; 2017-04-24)
DX: O48.0 Post-term pregnancy (principal); O36.63X0 Maternal care for excessive fetal growth, third trimester, not applicable or unspecified; Z3A.40 40 weeks gestation of pregnancy; O70.1 Second degree perineal laceration during delivery; Z37.0 Single live birth
CPT/HCPCS: 76816; 80053; 81001; 84560; 85025; 85384; 85610; 85730; 86592; 86900; 86901; 87340; 90715; 90716; 99464; G0463; J0595; J2590; J7120

== ENCOUNTER 2018-11-11 10:22 | Emergency (ER) | payer MEDICAID ==
[~2018-11-11] VITALS: Ht 162.6 cm; Wt 85.1 kg
[~2018-11-11 10:22] MED LIST changes: -CALC600T11 PO; +CALC600T24 PO; +IBUP-1542 PO
[2018-11-11 11:38] VITALS: Ht 162.6 cm; Wt 85.1 kg
[2018-11-11] MEDS ORDERED: IBUPROFEN 600 MG TAB PO STA (12:45)
[2018-11-11] MEDS ORDERED: METO10TA92 PO (13:03)
[2018-11-11] MEDS ORDERED: IBUP-1542 PO (13:03)
--- NOTE | 2018-11-11 13:24 | ERD ---
ER Documentation Chief Complaint Chief Complaint C/O LEFT SIDE OF H/A FOR 4 DAYS; NO NEUR DEFICIT NOTED HPI 33-year-old female history of migraines presents to the ED complaining of a moderate headache locating in the left side of her head for the past 4 days. She states that she started off having photophobia and nausea and vomiting but that has resolved. Patient states that she has tried Tylenol with some relief. Denies any neuro deficits. ROS All systems reviewed and are negative except as per history of present illness. Medications Home Meds Active Scripts Metoclopramide* (Reglan*) 10 Mg Tablet, 10 MG PO Q6 PRN for NAUSEA AND/OR VO MITING, #10 TAB Prov:ROXANNE JURADO PA-C 11/11/18 Ibuprofen* (Motrin*) 600 Mg Tab, 600 MG PO Q6H PRN for PAIN AND OR ELEVATED TEMP, #30 TAB Prov:ROXANNE JURADO PA-C 11/11/18 Ibuprofen* (Ibuprofen*) 600 Mg Tablet, 600 MG PO Q6, #30 TAB 0 Refills Prov:KWADWO ALVAREZ MD 04/25/17 Reported Medications Calcium Carbonate* (Calcium Carbonate*) 600 MG Ca Tab, 1200 MG PO DAILY, TAB 04/08/17 Multivit/Min/Fol Ac/Iron/Pren* ( S*) 1 Tab Tab, 1 TAB PO DAILY, TAB 04/08/17 Allergies Allergies: Coded Allergies: No Known Allergies (Verified Allergy, Unknown, 11/11/18) PMhx/Soc History of Surgery: No Anesthesia Reaction: No Hx Neurological Disorder: No Hx Respiratory Disorders: No Hx Cardiac Disorders: No Hx Psychiatric Problems: No Hx Miscellaneous Medical Probl: No Hx Alcohol Use: No Hx Substance Use: No Hx Tobacco Use: No Physical Exam Vitals Vital Signs Date Temp Pulse Resp B/P (MAP) Pulse Ox O2 O2 Flow FiO2 Time Delivery Rate 11/11/18 98.0 98 18 150/86 99 11:38 (107) Physical Exam GENERAL: well-developed/well-nourished, in no apparent distress, non-toxic appearing HENT: NC/AT, bilateral tympanic membrane is normal with good cone of light, nares patent, oropharynx clear without exudates EYES: Conjunctiva normal, PERRLA, EOMI, no nystagmus noted NECK: Supple, no lymphadenopathy PULM: CTA bilaterally, no rales, rhonchi, or wheezing heard CV: Normal S1S2, RRR, good capillary refill GI: Soft, non-distended, normal bowel sounds, non-tender BACK: No midline tenderness, no masses, No CVAT EXT: No clubbing, cyanosis, or edema NEURO: Alert and orientated to person, place, and time. CN II-IIX intact. Gait and coordination were normal. 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 My differential diagnoses include tension, migraine, and cluster headache, overuse medication headache, subarachnoid hemorrhage, meningitis, stroke. Pain relief was given in the ED with some improvement. Neurology exam was normal and I don't recommend a CT scan at this time DISPOSITION: hemodynamically stable and neurovascularly intact. Prescriptions ibuprofen and Reglan. Were given. Discussed to follow up with a primary care physician in the next couple days. Discussed neuro referral/ Return to the ER if condition worsens or not improving as expected. Patient agreed and understood this plan. Departure Diagnosis: Primary Impression: Headache Condition: Stable Patient Instructions: What Are Migraine and Tension Headaches?, Preventing Migraine Headaches: Triggers, Preventing Migraine Headaches: Medications and Lifestyle Changes, Headache, Migraine (Classical) Referrals: NO PRIMARY,CARE PHYSICIAN (PCP) Additional Instructions: Necesitar un seguimiento con un neurlogo. Visite a atvera tee bueno para un EXAMEN.Regrese a estas instalaciones si no se mejora howard esperbamos o howard le dijimos. Kreamer toda la medicina michelle y howard se le indic. Regrese a estas instalaciones si no se mejora howard esperbamos o howard andrews garibays. ROXANNE JURADO PA-C Nov 11, 2018 13:24
== END 2018-11-11 13:35 | disposition home or self-care (01) ==
LOC: FTE 10:22
DX: R51 Headache (principal)
CPT/HCPCS: Z7502; Z7610; 99282